=== PATIENT | male | born 1930 | race Caucasian/White ===

== ENCOUNTER 2017-03-03 18:58 | Emergency (ER) | payer MEDICARE ==
[2017-03-03 19:48] LABS: % BASOPHILS 0.6 % (0.0-2.0); % EOSINOPHILS 3.4 % (0.0-5.0); % LYMPHOCYTES 15.3 % (20.0-50.0); % MONOCYTES 8.3 % (2.0-10.0); % NEUTROPHILS 72.4 % (40.0-80.0); HEMATOCRIT 37.3 % (41.0-60); HEMOGLOBIN 12.5 gm/dL (12-16); MEAN CORPUSCULAR HEMOGLOBIN 31.9 pg (27.0-31.0); MEAN CORPUSCULAR HGB CONC 33.5 pg (28.0-36.0); MEAN PLATELET VOLUME 8.3 fl; NEUTROPHILE ABSOLUTE 8.2 Th/cmm (1.8-8.0); PLATELET COUNT 103 Th/cmm (150-400); RED BLOOD COUNT 3.93 Mil/cmm (3.80-5.80); RED CELL DISTRIBUTION WIDTH 13.4 % (11.5-20.0); WHITE BLOOD COUNT 11.3 Th/cmm (4.8-10.8)
[2017-03-03 20:04] LABS: BUN - UREA NITROGEN 60 mg/dL (7-25); BUN/CREATININE RATIO 37.5; CALCIUM SERUM 9.6 mg/dL (8.6-10.3); CARBON DIOXIDE 26.2 mEq/L (21.0-31.0); CHLORIDE 101 mEq/L (98-107); CREATININE - SERUM 1.6 mg/dL (0.7-1.3); GLUCOSE 130 mg/dL (70-105); POTASSIUM SERUM 5.2 mEq/L (3.5-5.1); SODIUM SERUM 131 mEq/L (136-145)
--- NOTE | 2017-03-03 22:46 | ER Physician Documentation ---
DATE OF SERVICE: 03/03/2017 When the patient came in, name was put in, but he has not seen the patient. I am the first one to see the patient so essentially he might be under me to take care of him. He came from home by [facility]. The patient's chief complaint is that he had a fall. He was at home, and he said he had a bad fall and 911 was called and he was brought to the hospital. He has skin tears in both the elbow area, which will be dressed up and applied to thing. I believe one of the daughters is staying with him and she takes care of him. The patient is under hospice care. The daughter will call the hospice care to let them know that the patient is here. They want to take the patient back home. I interviewed the patient. HISTORY OF PRESENT ILLNESS: When asking the patient, he does not know the name of the hospital, but he knows the days in the hospital and he does not remember that he has a pacemaker, but he knows that he had a gallbladder surgery done and he does not have any cardiac complaints or any other significant complaints except for minor aches and pains. He had injury to the head and I do not see any laceration, cut, or hematoma. He has no injury in the lower extremities. He has no other significant complaints. ALLERGIES: INCLUDE PENICILLIN, does not know much details about the allergies. REVIEW OF SYSTEMS: CONSTITUTIONAL: He does not smoke now. He used to smoke in the past. He has mild wheezes. He does not have any COPD, emphysema, or bronchitis. HEART: The patient has a permanent pacemaker on the left side. I see two scars that means the first pacemaker was removed and a second one was inserted in him. Whether the patient had previous history of cardiac arrhythmias or not, is not known. It is not an ICD device that much I can tell you, because the size is very small and once we get the EKG, we will know whether it is 100% pacing, partially pacing, or ventricular pacing, or single-lead pacing, or dual-lead pacing. GENITOURINARY: No significant complaints. BONES AND JOINTS: The patient has aches and pains here and there, somewhat in the back, also a little bit in the head, some in both the elbow areas where the skin tear is there. This is a superficial skin tear. CENTRAL NERVOUS SYSTEM: Has dementia and spinal stenosis, does not know much, but he is happy at home. He knows that his daughter is taking care of him. For other things, the daughter does not know the details of anything else happening. She showed me his head saying that he had some bump in the head and did not see anything like hematoma or tear or laceration in the head or cut in the head area. No meningeal signs were seen. PAST MEDICAL HISTORY: Includes history of dementia, spinal stenosis, and permanent pacemaker. CURRENT MEDICATION: Bottle I saw the patient is taking metoprolol, long acting, 60 mg once a day, losartan along with hydrochlorothiazide 320-25 mg once a day. PHYSICAL EXAMINATION: GENERAL: The patient appears to be awake. He is in the hospital. He does not know he is in the Emergency Room. VITAL SIGNS: His pulse is 89 beats per minute. I have to look at the monitor, they have just started. It is the change of shift time, so the regular nurses are not here. One regular nurse is here and other nurses have come in. His blood pressure is 134/88, and saturation is 99%. HEENT: Eyes are normal. Pupils are about 3 mm, reacting to light. NECK: Veins are not distended. Carotids are normal. Normal uplift. EXTREMITIES: No cyanosis, petechia, or ecchymosis. Peripheral pulses are absent in the ankles and extremities appears to be somewhat colder. The pulses below the femoral are very faint into the popliteal and in the legs. Otherwise, no evidence of any tremors or any Parkinson's type symptoms or any paralysis noted. Moves all the extremities. Reflexes are normal. Plantars are downgoing. CHEST: Clear. Trachea being central, slightly emphysematous chest wall. Occasional rhonchi audible in both lung vasquez. Occasional crackles are also audible at the base of the lung. ABDOMEN: Soft, benign, and negative except for a large surgical scar in the right upper quadrant of cholecystectomy. No enlargement of the spleen, no free fluid in the abdominal cavity. CENTRAL NERVOUS SYSTEM: Dementia is present. Disorientation to time and space and two daughters are present. Moves all the extremities. HEART: Reveals permanent pacemaker on the left side of the chest. Two surgical scars of the permanent pacemaker, first one when the pacemaker must have been put in and then it was taken out and a new scar in the pacemaker is over there. We have to look at the EKG and monitor strip to find out about the functioning of the pacemaker. We will order an EKG to be done. It will be connected to a cardiac care nurse. The lab workups are ordered. Urine culture, CBC, BMP, and magnesium have been ordered. EKG has been ordered. We will see if we can get. The patient is a hospice care and the daughter will take the patient home if everything is alright, if anything needs to be given to the patient. The patient does not have any pain. He does not remind any pain medication, neither does the daughter want anything at the present moment to be given to the patient. JOB# [id number]
--- NOTE | 2017-03-04 00:38 | ER Physician Documentation ---
DATE OF SERVICE: 03/03/2017 ADDENDUM I had given the initial dictation of the patient's history and physical examination, etc. and now I will give you the lab results and further followup of this patient. The patient is a hospice patient. Lab workup came up. I looked at the x-ray of the chest. X-ray of the chest shows the permanent pacemaker is in the left side of the chest. He has two leads, one in the atrium, looks to be in the nice spot and one in the right ventricle, looks to be in the nice spot. There seems to be slight congestion in the chest noted, but the patient is already on medications. His electrolytes were done. His labs shows magnesium of 1.9, sodium of 131, potassium 5.2, his chloride is 101, CO2 is 26.2, glucose is 130, BUN is 60 and creatinine is 1.6. With this, I would cut that medication of losartan and hydrochlorothiazide that he is getting. Maybe, he is getting dehydrated and hyponatremia that I see is also secondary to that medication, so that will be stopped and I will change some medication, which I will let you know. Lactic acid level is 1.3. Sodium is 130 to 131, ____ he has prerenal azotemia, most likely secondary to losartan 320 mg. There is a lot of losartan along with hydrochlorothiazide that will be on stop and the patient's nurse to note that this medication has been on hold and the patient will be getting Procardia-XL 30 mg once a day along with Inderal long acting that he is getting 60 mg once a day and any other medication that their physician who is managing the hospice care has to order that. In the meantime, the dressings to both the elbows were applied. Information has been given to the patient. I looked at the x-ray myself. I was told that no radiologist is available to read them for normal chest x-ray and back x-ray ____ so I went and looked at it. There is some narrowing of the lumbosacral disk space in couple of spaces. No compression fractures are seen. Chest x-ray, as I mentioned was showing x-ray is normal. Mild chest congestion is present and the patient would need further followup lab workup, etc., by the hospice ____ seems necessary. [facility]# [id number]
--- NOTE | 2017-03-04 10:09 | Diagnostic Imaging Report ---
Thoracic spine 3 views Indication: Fall, rule out fracture Comparison: Lumbar spine x-rays the same day Findings: Left chest wall pacemaker apparatus is noted with leads in the region right atrium and right ventricle. Extensive multilevel degenerative changes are seen with multilevel osteophyte and probable bridging syndesmophyte. No acute compression fracture. There is 1 to 2 mm anterolisthesis of C2 on C3. Impression: No evidence of an acute compression fracture. Extensive multilevel degenerative changes are noted. If there is continued concern for fracture CT examination is recommended for further assessment. 1 to 2 mm anterolisthesis of C2 on C3 likely due to facet arthropathy. In the setting of trauma, if clinical symptoms persist and there is continued concern for an occult fracture, follow up exams in 5-7 days is suggested.
--- NOTE | 2017-03-04 10:09 | Diagnostic Imaging Report ---
CHEST X-RAY: AP view INDICATION: Fall rule out fracture COMPARISON: None FINDINGS: Left chest wall pacemaker is noted with leads in region of right atrium and right ventricle. Small bilateral effusions are noted. Mild congestive changes are seen with no focal consolidation identified. The osseous structures are intact. Mild cardiomegaly is noted. No evidence of pneumothorax. IMPRESSION: No evidence of pneumothorax. Mild congestive changes small bilateral effusions. No focal consolidation identified Pacemaker Mild cardiomegaly.
--- NOTE | 2017-03-04 10:11 | Diagnostic Imaging Report ---
Sacrum and coccyx 2 views Indication: Fall Comparison: Lumbar spine x-ray the same day Findings: Degenerative changes of SI joints are noted. No evidence of an acute fracture. Advanced degenerative changes of lumbar spine are noted. Impression: No evidence of an acute fracture. If clinically indicated CT follow-up may be obtained for further assessment. In the setting of trauma, if clinical symptoms persist and there is continued concern for an occult fracture, follow up exams in 5-7 days is suggested.
--- NOTE | 2017-03-04 10:14 | Diagnostic Imaging Report ---
Lumbar spine 3 views Indication: Fall, rule out fracture Comparison: Thoracic spine and sacrum and coccyx views the same day Findings: No evidence of an acute compression fracture or subluxation. Extensive degenerative changes are seen with advanced disc space loss of height at L3/L4 and L4/L5. Multilevel marginal osteophytic spurring is noted. Advanced facet degenerative changes lower lumbar spine are noted with areas of neural foraminal narrowing. Degenerative changes of SI joints are noted. There is distal fecal impaction. Pacemaker is noted. Impression: No evidence of an acute compression fracture or subluxation. If there is continued concern for a fracture, CT examination is recommended for further assessment. Distal fecal impaction. In the setting of trauma, if clinical symptoms persist and there is continued concern for an occult fracture, follow up exams in 5-7 days is suggested.
== END 2017-03-03 21:39 | disposition home or self-care (01) ==
LOC: ER 18:58
DX: S51.012A Laceration without foreign body of left elbow, initial encounter (principal); S51.011A Laceration without foreign body of right elbow, initial encounter; Z95.0 Presence of cardiac pacemaker; W19.XXXA Unspecified fall, initial encounter; Y93.89 Activity, other specified; Y92.89 Other specified places as the place of occurrence of the external cause; Y99.8 Other external cause status
CPT/HCPCS: 36415-UA; 71010-TC; 72072-TC; 72100-TC; 72220-TC; 80048-TC; 83605; 83735-TC; 85025-TC; 87086-90